=== PATIENT | male | born 1970 | race Caucasian/White ===

== ENCOUNTER 2018-11-07 05:30 | Observation (INO) ==
--- NOTE | 2018-11-03 14:46 | EKG Report ---
Test Performed on : 11/03/2018 2:31:05 PM Test Reason : pat Blood Pressure : / mmHG Vent. Rate : 101 BPM Atrial Rate : 101 BPM P-R Int : 156 ms QRS Dur : 090 ms QT Int : 354 ms P-R-T Axes : 067 069 -58 degrees QTc Int : 459 ms Sinus tachycardia. Biatrial enlargement ST & T wave abnormality, consider lateral ischemia Abnormal ECG No previous ECGs available Confirmed by Rakesh BASSETT, Hernan Otero ([id number]) on 11/03/2018 6:03:05 PM
[2018-11-03 15:18] LABS: HEMATOCRIT 42.8 % (42.0-52.0); HEMOGLOBIN 14.1 g/dL (14.0-18.0); MCH 27.6 PG (27-31); MCHC 32.9 g/dL (33-37); MCV 83.8 FL (81-99); MPV 10.3 FL (7.4-10.4); RBC 5.11 XMIL (4.7-6.1); RDW 14.2 % (11.5-14.5); WBC 8.77 X1000 (4.8-10.8)
[2018-11-03 15:25] LABS: AGAP 12; BUN 13 mg/dL (8-22); CHLORIDE 104 mmol/L (98-107); COSMO 292; CREATININE 1.1 mg/dL (0.7-1.2); ESTIMATED GFR > 60; GLUCOSE 151 mg/dL (70-104); POTASSIUM 3.3 mmol/L (3.5-5.1); SODIUM 145 mmol/L (136-145); TCO2 29 mmol/L (25-35); URIC ACID 8.1 mg/dL (3.4-7.0)
--- NOTE | 2018-11-06 16:29 | HISTORY AND PHYSICAL ---
CHIEF COMPLAINT: Left renal stone. HISTORY OF PRESENT ILLNESS: This 48-year-old male has a several month history of severe intermittent left flank pain. Evaluation revealed a 2 x 3 mm calcification in the left renal pelvis and a 1 cm calcification in a left mid lakshmi. The patient denies any previous history of kidney stones. He has had no previous urologic surgery. He has no problems with urinary tract infections or gross hematuria. He states when he was seen in the emergency room they told him he had blood in his urine. He is not taking any medications for his urinary system. PAST MEDICAL HISTORY: Hypertension, elevated cholesterol, diabetes, history of a seizure. CURRENT MEDICATIONS: Atenolol, lisinopril, atorvastatin, glimepiride, hydrochlorothiazide. PAST SURGICAL HISTORY: Leg fracture with pinning. SOCIAL HISTORY: No current tobacco or alcohol use. Previous recreational drug use of marijuana, cocaine and methamphetamine. He states this was several years ago. ALLERGIES: No known drug allergies. REVIEW OF SYSTEMS: Usually in good health. He denies any problems with chest pains, recent pulmonary or bowel problems. He has no current voiding problems. PHYSICAL EXAMINATION: GENERAL: A normally developed, age apparent, mildly obese, white male, oriented in all ways and cooperative. HEENT: Normal for age. LUNGS: Clear. CARDIOVASCULAR: Regular rate and rhythm. ABDOMEN: Protuberant, soft, nontender. No hepatosplenomegaly or masses. Normal bowel sounds. : Uncircumcised male. Foreskin retracts. Both testes are down and palpably normal. There are no inguinal hernias. RECTAL: Deferred until surgery. EXTREMITIES: No clubbing, cyanosis, or edema. NEUROLOGIC: No focal deficits. IMPRESSION: Large left renal pelvic stone with a smaller left mid kidney stone. PLAN: Laparoscopic robot-assisted left pyelolithotomy with removal of the large stone and hopefully removal of the left mid stone. The planned procedure, benefits versus risks, and possible complications, including but not limited to bleeding, infection, not being able to remove the stone, not being able to remove all stones, need for further stone surgery, formation of a ureteropelvic junction stricture or ureteral stricture was discussed. Discussed he will need to have a double-J stent in place for 4 weeks. He seems to understand and desires to proceed. cc: Matteo Jason MD
[2018-11-07] MEDS ORDERED: REGLAN ONE (06:11)
[2018-11-07] MEDS ORDERED: PEPCID ONE (06:11)
[2018-11-07] MEDS ORDERED: LR 1,000 ML ONE ×2 (06:11→06:34)
[2018-11-07] MEDS ORDERED: KEFZOL 1 GM/D5W 2 GM/100 ML IVPB ONE (06:11)
[2018-11-07] MEDS ORDERED: VERSED ONE (06:29)
[2018-11-07] MEDS ORDERED: FENTANYL ONE (06:29)
[2018-11-07] MEDS ORDERED: DIPRIVAN 1% ONE (06:30)
[2018-11-07] MEDS ORDERED: QUELICIN (DOSE) ONE (06:30)
[2018-11-07] MEDS ORDERED: XYLOCAINE-MPF 2% ONE (06:30)
[2018-11-07] MEDS ORDERED: ROBINUL ONE ×2 (06:30→07:10)
[2018-11-07] MEDS ORDERED: SENSORCAINE 0.25%/EPI 1:200,000 ONE (06:34)
[2018-11-07] MEDS ORDERED: NORCURON ONE (07:07)
[2018-11-07] MEDS ORDERED: STERILE WATER INJ. ONE (07:07)
[2018-11-07] MEDS ORDERED: EPHEDRINE ONE (07:08)
[2018-11-07] MEDS ORDERED: DECADRON ONE (07:10)
[2018-11-07] MEDS ORDERED: TORADOL ONE (07:10)
[2018-11-07] MEDS ORDERED: OFIRMEV 1000 MG/ISOTONIC SOLN 1,000 MG/100 ML BOTTLE ONE (07:10)
[2018-11-07] MEDS ORDERED: NEOSTIGMINE ONE (07:10)
[2018-11-07] MEDS ORDERED: ZOFRAN ONE (07:10)
[2018-11-07 08:20] LABS: BILIRUBIN URINE NEGATIVE (NEGATIVE); BLOOD URINE NEGATIVE (NEGATIVE); COLOR YELLOW; GLUCOSE URINE NEGATIVE (NEGATIVE); KETONE URINE NEGATIVE (NEGATIVE); LEUKOCYTES URINE SMALL (NEGATIVE); NITRITE URINE NEGATIVE (NEGATIVE); PROTEIN URINE NEGATIVE (NEGATIVE); SP GRAVITY URINE 1.018; TURBIDITY URINE CLEAR (CLEAR); URINE SOURCE CATH; UROBILINOGEN URINE NORMAL (NORMAL)
[2018-11-07 08:21] LABS: UR EPITHELIAL CELLS <10 /HPF (<10); URINE BACTERIA NEGATIVE /HPF; URINE RBC <10 /HPF (<10)
[2018-11-07] MEDS ORDERED: NS 1,000 ML ONE (13:02)
[2018-11-07] MEDS: KEFZOL 1 GM/D5W 1 GM/50 ML IVPB ONE ×2 (13:10→20:12)
[2018-11-07] MEDS: LR 500 ML ONE ×2 (13:15→21:18)
[2018-11-07] MEDS: DILAUDID ONE ×3 (13:27→21:20)
[2018-11-07] MEDS ORDERED: OFIRMEV 1000 MG/ISOTONIC SOLN 1,000 MG/100 ML BOTTLE IV PRN (13:30)
[2018-11-07] MEDS ORDERED: PHENERGAN IV PRN (14:00)
[2018-11-07] MEDS ORDERED: SODIUM CHLORIDE 0.9% INJ PRN (14:00)
[2018-11-07] MEDS ORDERED: DITROPAN PO PRN (14:00)
[2018-11-07] MEDS ORDERED: BENADRYL LIQUID PO PRN (14:00)
[2018-11-07] MEDS ORDERED: OXY IR PO PRN (14:00)
[2018-11-07] MEDS: MORPHINE IV PRN ×2 (15:54→21:31)
[2018-11-07] MEDS: NS 1,000 ML IV SCH (15:55)
[2018-11-07] MEDS ORDERED: KEFZOL 2 GM/D5W 2 GM/50 ML IVPB IV SCH (21:00)
--- NOTE | 2018-11-07 21:24 | OPERATIVE NOTE ---
PROCEDURE DATE: 11/07/2018 SURGEON: Matteo Jason MD. PREOPERATIVE DIAGNOSIS: Large left renal pelvic stone. POSTOPERATIVE DIAGNOSIS: Large left renal pelvic stone. PROCEDURE PERFORMED: Laparoscopic robot-assisted left pyelolithotomy. ANESTHESIA: General endotracheal. FINDINGS: An approximate 3 x 4 cm stone in the left renal pelvis. INDICATION FOR PROCEDURE: This 48-year-old male has a long history of left flank pain. It steadily got worse. Evaluation revealed a large left renal pelvic stone and a smaller stone in a left mid to lower pole calyx. The options for treating this including several shockwave lithotripsies, percutaneous nephrostolithotomy or laparoscopic robot-assisted pyelolithotomy was discussed. He decided on the laparoscopic robot assisted pyelolithotomy. DESCRIPTION OF PROCEDURE: After informed consent was obtained from the patient, him receiving IV antibiotics, he was taken to the main OR, placed in supine position. General endotracheal anesthesia was achieved. He was then placed with his left side up about 30 to 40 degrees. He was then affixed to the table. The table was somewhat flexed and placed in reverse Trendelenburg such that his thorax was parallel to the floor. The patient had a 16-Bruneian José catheter passed through the urethra, prostate and bladder without difficulty. He was then prepped and draped sterilely for left flank and abdominal surgery. The table was then rotated all the way to his left to bring him all most supine. The robot trocars were placed with the camera port approximately 1 handbreadth above the umbilicus just to the left of the midline. The water drop test was used to verify the Veress needle in good position in the abdomen. The abdomen was insufflated to 14 cm of water. The Veress needle was removed and the 12 mm port was placed which acted as the camera port. A camera was placed and the #2 robot arm was placed just at the midclavicular line just below the ribcage. The #1 arm was placed below the umbilicus in the midclavicular line. The 4th arm was placed just above the left anterior superior iliac spine. The public services assistant port was placed just below the umbilicus in the midline. After all trocars were placed, the patient was rotated all the way to the right such that his left side was rotated all the way up into the flank position. The robot was docked. The procedure was started by taking down the descending colon along the white line of Toldt. The colon was reflected completely medially. The 4th arm was then used to grab tissue at the lower pole and provide traction and this area was dissected until the gonadal vein was seen. The patient was obese and there was a large amount of adipose tissue internally. After the gonadal vein was visualized the dissection was continued down on to the area of the psoas muscle where the ureter was visualized. The gonadal vein was then dissected up to the renal vein. The renal vein came under the aorta close to the lower pole of the kidney. After the renal vein was visualized, attention was turned back to the ureter that was dissected up to the renal pelvis. The anterior portion of the renal pelvis was dissected and then the inferior portion was dissected. The pelvis was entered above the UPJ but the renal vein completely covered the renal pelvis. It had to be held cephalad the whole case. After the pelvis was entered, the stone was not visualized. There was a large amount of tissue present. A portion was removed and sent to Pathology for frozen section and it came back benign. The stone was found after all of the probable inflammatory tissue was removed and the stone was very large and difficult to manipulate in the surroundings but it was eventually able to be removed. After the stone was removed it was placed in an EndoCatch bag and moved out of the way. The area was irrigated. The ureter had been avulsed while removing the stone. A Sensor wire was passed through the ureter down into the bladder. The renal pelvis was finally located. It had retracted up behind the renal vein and kidney. The renal pelvis was closed starting at the superior end and running down with a 3-0 Vicryl and the pelvis was closed to about 12-Bruneian. A 7- Bruneian, 26 cm double-J stent was passed over the Sensor wire and down into the bladder. The double-J stent was pushed all the way down until the coil was seen. The wire was removed. The double-J stent was forced up into the renal pelvis and it coiled into the renal pelvis without difficulty. The 3-0 Vicryl was then used to close the UPJ area and ureter. The 4th arm was then removed and a 19-Bruneian Aguilar drain was brought through the 4th arm trocar. The trocar was removed and the Aguilar drain placed in the retroperitoneum and was sutured to the skin with 3-0 nylon. At completion, the renal pelvis appeared intact. The stent could not be seen. The double- J stent could be seen through the ureteral tissue. The robot was undocked. The patient was then rotated all the way to the left. The trocars were removed. The public services assistant trocar was the last 1 to be removed and it was pulled back over the Endo Catch bag retrieval string. The public services assistant port incision was extended for another 2 cm. The surgeon's finger was placed in the wound and the Bovie electrocautery was used to cut down to the abdominal rectus fascia which was opened further and the stone in the Endo Catch bag was removed. The abdominal rectus fascia was reapproximated with 2 interrupted sutures of #1 Maxon. The abdominal rectus fascia at the camera port incision was closed with a [id number] suture of 2-0 Vicryl on a UR6 needle. The skin incisions were reapproximated with clips and island dressings were placed. He tolerated the procedure well. Estimated blood loss was 100 mL. He was extubated and taken to the recovery room in good condition with the José catheter in place. cc: Matteo Jason MD [facility]
[2018-11-07] MEDS: PEPCID PO SCH (21:30)
[2018-11-07] MEDS: COLACE PO SCH (21:30)
[2018-11-07] MEDS: PERIDEX MT SCH (21:36)
[2018-11-08] MEDS: NS 1,000 ML IV SCH ×3 (00:39→13:26)
[2018-11-08] MEDS: MORPHINE IV PRN ×3 (02:47→15:59)
[2018-11-08] MEDS: OXY IR PO PRN ×4 (07:00→23:56)
[2018-11-08 07:35] LABS: HEMATOCRIT 41.6 % (42.0-52.0); HEMOGLOBIN 13.2 g/dL (14.0-18.0); MCH 27.5 PG (27-31); MCHC 31.7 g/dL (33-37); MCV 86.7 FL (81-99); RBC 4.8 XMIL (4.7-6.1); RDW 14.1 % (11.5-14.5); WBC 16.9 X1000 (4.8-10.8)
[2018-11-08 07:51] LABS: CALCIUM 7.6 mg/dL (8.8-10.2); CREATININE 2.8 mg/dL (0.7-1.2); POTASSIUM 3.5 mmol/L (3.5-5.1)
[2018-11-08 10:14] LABS: CREATININE BODY FLUID 2.4 mg/dL
[2018-11-08] MEDS: PEPCID PO SCH ×2 (10:48→20:19)
[2018-11-08] MEDS: PERIDEX MT SCH ×2 (10:48→20:19)
[2018-11-08] MEDS: COLACE PO SCH ×2 (10:49→20:19)
[2018-11-09] MEDS: MORPHINE IV PRN ×2 (02:45→23:42)
[2018-11-09] MEDS: LABETALOL IV PRN ×3 (04:12→11:12)
[2018-11-09] MEDS: NS 1,000 ML IV SCH ×4 (06:05→16:06)
[2018-11-09 06:29] LABS: BODY FLUID SOURCE JP DRAIN FLUID; CREATININE BODY FLUID 2.4 mg/dL
[2018-11-09 07:14] LABS: BASO# 0.01 X1000 (0.0-0.2); BASO% 0.1 % (0.0-0.8); EOS# 0.08 X1000 (0.0-0.7); EOS% 0.6 % (0.0-10.0); HEMATOCRIT 39.6 % (42.0-52.0); HEMOGLOBIN 12.9 g/dL (14.0-18.0); IMM GRAN# 0.03 X1000 (0.0-0.04); IMM GRAN% 0.2 % (0.0-0.5); LYMPH# 1.86 X1000 (1.2-3.4); LYMPH% 13.8 % (20.5-51.1); MCH 27.6 PG (27-31); MCHC 32.6 g/dL (33-37); MCV 84.6 FL (81-99); MONO# 1.43 X1000 (0.11-0.59); MONO% 10.6 % (1.7-9.3); MPV 11.2 FL (7.4-10.4); NEUT# 10.08 X1000 (1.4-6.5); NEUT% 74.7 % (42.2-75.2); PLT 214 X1000 (130-400); RBC 4.68 XMIL (4.7-6.1); RDW 14.1 % (11.5-14.5); WBC 13.49 X1000 (4.8-10.8)
[2018-11-09 07:36] LABS: CALCIUM 7.9 mg/dL (8.8-10.2); POTASSIUM 3.4 mmol/L (3.5-5.1)
[2018-11-09] MEDS: COLACE PO SCH ×2 (10:22→20:05)
[2018-11-09] MEDS: PERIDEX MT SCH ×2 (10:23→20:05)
[2018-11-09] MEDS: PEPCID PO SCH ×2 (10:23→20:05)
[2018-11-09] MEDS: OXY IR PO PRN ×2 (10:23→20:05)
[2018-11-09] MEDS ORDERED: GLUCOTROL XL PO SCH (11:30)
[2018-11-09] MEDS ORDERED: HYDROCHLOROTHIAZIDE PO SCH (11:30)
[2018-11-09] MEDS ORDERED: PRINIVIL PO SCH (11:30)
--- NOTE | 2018-11-09 12:40 | Diag Imaging Result Doc PS360 ---
EXAM: ABDOMEN FLAT/UPRIGHT HISTORY: pain TECHNIQUE: Flat and upright, three views COMPARISON: None. FINDINGS: Skin james overlie the mid abdomen and upper pelvis. There is a left ureteral stent with a left renal stone. No bowel obstruction. No organomegaly. Mild scoliosis. IMPRESSION: No acute abnormality. Electronically signed by Gwyn Cortés 11/09/2018 12:37 PM
[2018-11-09] MEDS: TENORMIN PO SCH (13:22)
[2018-11-09] MEDS ORDERED: ROCEPHIN 1 GM in NS 50 ML IV SCH (13:45)
[2018-11-09 14:22] LABS: INR 1.17
[2018-11-09 14:23] LABS: PTT 33.5 Seconds (22.3-41.8)
[2018-11-09 14:49] LABS: CK INDEX 0.3 (0.0-2.5); CK-MB 5.87 ng/mL (0.0-5.0)
--- NOTE | 2018-11-09 15:46 | CONSULTATION ---
DATE OF CONSULTATION: 11/09/2018 REASON FOR CONSULTATION: Medical management. High blood pressure. HISTORY OF PRESENT ILLNESS: Mr. Higuera is a 48-year-old male with a past medical history of hypertension, hyperlipidemia, diabetes mellitus, and seizure history, who reported to Dr. Jason with several month history of severe intermittent flank pain. Evaluation showed a 2 x 3 mm calcification in the left renal pelvis and a 1 cm calcification of the left mid calyx. 24,000. He was admitted on 11/06/2018 and underwent a laparoscopic robotic assisted left pyelolithotomy by Dr. Jason on 11/07/2018. The patient continued to be hypertensive throughout his stay. He was initiated back on his home medications this a.m., however at bedside reports at home, even with his blood pressure medicines, he tends to run in the 180s, sometimes a little higher over low 100s. Apparently he ruled in for the sepsis protocol. They have initiated the orders. We will start Rocephin for now. There was some concern over ileus, however his KUB shows no acute abnormality. I do believe there was a post void residual of over [address] Jason has ordered his José catheter to be reinserted, which the patient is somewhat apprehensive about at this time. On 11/09/2018 he had a white count of 16. On 11/09/2018 he had a white count of 13. He has had an elevation in his creatinine since admission at 1.1 up to 2.8 and now 2.0. His plasma lactate was 3.8. Currently, pending all other sepsis protocol labs. We will follow that up with a urinalysis as well as a chest x-ray. PAST MEDICAL HISTORY: 1. Hypertension. 2. Hyperlipidemia. 3. Diabetes. 4. Seizure. PAST SURGICAL HISTORY: Leg fracture with pinning. CURRENT MEDICATIONS: Atenolol, lisinopril,atorvastatin, glimepiride, hydrochlorothiazide. SOCIAL HISTORY: He is . No tobacco, alcohol, or illicit drug use. He is a previous recreational drug user of marijuana, cocaine, and methamphetamines, however this was several years ago. ALLERGIES: No known drug allergies. REVIEW OF SYSTEMS: Completely negative except for those mentioned in the HPI. PHYSICAL EXAMINATION: Vital signs: Temperature 98.3, heart rate 87, respirations 20, blood pressure 194/120, O2 saturation 98% on room air. General: Mr. Higuera is a 48-year-old male who is sitting up in the bed getting a bladder scan, in no acute distress. HEENT: Atraumatic. Normocephalic. PERRL. Neck: Supple. Trachea midline. Cardiovascular: S1, S2 appreciated. No murmurs, gallops, or rubs noted. Respiratory: Lung sounds are clear bilaterally. Gastrointestinal: Obese. Somewhat distended but bowel sounds are present. Lower extremities: Negative for edema. Neurological: No focal deficits noted. PERTINENT DIAGNOSTICS AND LABORATORY DATA: Per HPI. ASSESSMENT AND PLAN: 1. Hypertension. The patient has been reinitiated back on his home medications and has labetalol intravenously every two hours as needed. Per at bedside, his blood pressure at home, even with these medications, he tends to run 180s/100s. 2. Sepsis rule in. The patient did just have surgery. Could be reactive. He is afebrile. Currently awaiting blood cultures, urine culture, and chest x-ray. We will go ahead and initiate him on some Rocephin. Continue with intravenous fluids. Currently pending the rest of the sepsis protocol labs. Continue to trend his lactate, that was 3.5. 3. Acute kidney injury. Will continue with intravenous hydration. This will be followed by Dr. Jason. 4. Large left renal pelvic stone, status post laparoscopic robotic assisted left pyelolithotomy, performed by Dr. Jason. He is under the care of Dr. Jason. 5. Concern for ileus. However, his KUB shows no acute abnormality. 6. Concern for rhabdomyolysis. We are still awaiting those labs. Again, will continue with intravenous hydration. 7. Hyperlipidemia. 8. Diabetes. Will place him on sliding scale. Continue his home medications as well as adding on patterned blood sugars. 9. Further recommendations to follow physician evaluation and laboratory and diagnostic data. Dictated by MALU iDckey for Edmund Batista MD cc: Edmund Batista MD
[2018-11-09] MEDS ORDERED: DULCOLAX PR ONE (16:47)
[2018-11-09] MEDS: HUMALOG SUBQ SCH (17:20)
[2018-11-09 19:30] LABS: URINE SOURCE CLEAN CATCH
[2018-11-09 19:32] LABS: BILIRUBIN URINE NEGATIVE (NEGATIVE); BLOOD URINE LARGE (NEGATIVE); COLOR ORANGE; GLUCOSE URINE NEGATIVE (NEGATIVE); KETONE URINE NEGATIVE (NEGATIVE); LEUKOCYTES URINE MODERATE (NEGATIVE); NITRITE URINE NEGATIVE (NEGATIVE); PROTEIN URINE 50 mg/dL (NEGATIVE); SP GRAVITY URINE 1.014; TURBIDITY URINE HAZY (CLEAR); UROBILINOGEN URINE NORMAL (NORMAL)
[2018-11-09 19:33] LABS: UR EPITHELIAL CELLS <10 /HPF (<10); URINE BACTERIA NEGATIVE /HPF; URINE RBC TNTC /HPF (<10); URINE WBC 20-40 /HPF (<10)
[2018-11-09] MEDS: NORVASC PO SCH (20:09)
[2018-11-09] MEDS ORDERED: COREG PO SCH (21:00)
--- NOTE | 2018-11-10 01:03 | CONSULTATION ---
DATE OF CONSULTATION: 11/09/2018 ADDENDUM: I have seen and examined Mr. Higuera today. He feels to be doing well, better than early on today. Mr. Higuera is a 48-year-old gentleman who has been under the Urologic Service since 11/06/2018. He initially got admitted because of left renal stone. He underwent laparoscopic robot-assisted left pyelolithotomy with removal of a large left renal pelvic stone and deployment of a J-stent in the left ureter. Postoperatively he seems to have been doing well until this morning, he did complain of some abdominal pain and abdominal distention. We have been consulted because of possible ileus and rhabdomyolysis. Currently his vitals have been reviewed. PHYSICAL EXAMINATION: Abdomen: His abdomen is distended. There is new laparoscopic scars on the anterior abdominal wall. Bowel sounds are present but remarkably hypoactive. No tenderness. QM NURSE: The patient is awake, alert and oriented. LABORATORY DATA: I have also reviewed his lab work, this morning his WBC is down to 13.49. I think this is probably reactive. The other parameters on the CBC are unremarkable. Chemistry has also been reviewed. His creatinine is down to 2.00 from 2.8 yesterday. His plasma lactate has normalized. His CK is up to 1752. A KUB that was done this morning suggests that there is a left ureteral stent with the left renal stone, no bowel obstruction. I think there is some mild ileus and there is also some mild fecal material in the right colon. ASSESSMENT AND PLAN: 1. Abdominal discomfort with distention with KUB imaging suggestive of mild ileus. I think for now Mr. Higuera seems to be doing well. We will start him on clears. We will also put him on a bowel regimen to help with his bowel movement. 2. History of a large left renal pelvic stone status post robotic-assisted left hilar pyelolithotomy. Urology is on board. 3. Leukocytosis. We think this is reactive; however, an underlying infection cannot be completely ruled out. The patient has been empirically started on IV antibiotics and we will be waiting on the blood cultur 4. Nonoliguric acute kidney injury. Creatinine seems to be trending down. I have discontinued his TANESHA inhibitor and the diuretics just because of the renal abnormalities. We will use amlodipine and a beta dorothy. I will also add hydralazine for a better blood pressure control. 5. Hypertension. Please refer to the plan above. 6. Mild rhabdomyolysis. We will continue with IV fluids. Please refer to the details of the consultation note which has been dictated by the nurse practitioner in the chart. cc: Edmund Batista MD
[2018-11-10] MEDS: HUMALOG SUBQ SCH ×2 (04:10→12:48)
[2018-11-10 07:02] LABS: HEMATOCRIT 39.2 % (42.0-52.0); HEMOGLOBIN 12.6 g/dL (14.0-18.0); MCH 27.5 PG (27-31); MCHC 32.1 g/dL (33-37); MCV 85.4 FL (81-99); MPV 10.6 FL (7.4-10.4); RBC 4.59 XMIL (4.7-6.1); RDW 14.2 % (11.5-14.5); WBC 10.94 X1000 (4.8-10.8)
[2018-11-10 07:06] LABS: HEMOGLOBIN A1C 6.6 % (4.8-6.0)
--- NOTE | 2018-11-10 07:06 | Diag Imaging Result Doc PS360 ---
EXAM: CHEST-PORTABLE 11/10/2018 HISTORY: hypoxia TECHNIQUE: AP portable at 0549 COMMENT: The inspiration is suboptimal. There are no focal pulmonary opacities. The heart size is at the upper limits. IMPRESSION: Borderline cardiomegaly. Electronically signed by Faizan Valencia 11/10/2018 7:04 AM
[2018-11-10 07:27] LABS: CALCIUM 8.1 mg/dL (8.8-10.2); CREATININE 1.3 mg/dL (0.7-1.2); POTASSIUM 2.8 mmol/L (3.5-5.1)
[2018-11-10] MEDS: OXY IR PO PRN (08:10)
[2018-11-10] MEDS ORDERED: MAGNESIUM SULFATE 2 GM/S.W.I. 2 GM/50 ML IVPB IV ONE (08:36)
[2018-11-10] MEDS: NORVASC PO SCH (09:18)
[2018-11-10] MEDS: PERIDEX MT SCH (09:18)
[2018-11-10] MEDS: PEPCID PO SCH (09:19)
[2018-11-10] MEDS: TENORMIN PO SCH (09:19)
[2018-11-10] MEDS: COLACE PO SCH (09:19)
[2018-11-10] MEDS: NS 1,000 ML IV SCH (09:20)
[2018-11-10] MEDS: MORPHINE IV PRN (11:10)
[2018-11-10] MEDS: POTASSIUM CHLORIDE 20 MEQ/SWI 20 MEQ/100 ML IVPB IV SCH ×2 (11:11→14:03)
[2018-11-10 11:40] VITALS: BP 164/94
--- NOTE | 2018-11-10 14:47 | PROGRESS NOTE ---
DATE: 11/10/2018 SUBJECTIVE: Today, Mr. Higuera refers to be doing well. He said he had 2 bowel movements, 1 yesterday and 1 this morning, and since then he feels a lot better. Abdomen is not bloated, and he denies any pain. OBJECTIVE: Vital Signs: Blood pressure is 164/94, pulse of 65, respirations 18, temperature 98.7 degrees, the patient was saturating 98% on nasal cannula. General: Mr. Higuera is a 48-year-old gentleman. He was in bed. No distress. Mucosa is pink and moist. Anicteric. Acyanotic. Neck: Supple. Chest: Clear to auscultation. No crepitations. No rhonchi. Cardiovascular: Regular rate and rhythm. There were no murmurs, no rubs, no gallops. GI: Abdomen was soft, distended, but nontender. There are some new laparoscopic scars on the anterior abdominal wall. Extremities: No pedal edema. HEEL SEAT FLAP STAPLER: The patient was awake, alert, and oriented. There was no focal neurological deficit. LABORATORY DATA: WBC is down to 10.94, hemoglobin is 12.6, platelet count of 185,000. Chemistry is also reviewed. Potassium was 2.8. This has been replaced. Creatinine is down to 1.3 from 2.0 yesterday. The patient's A1c is 6.5, and creatine kinase is down to 1512. ASSESSMENT: 1. Ileus associated with constipation. This has significantly improved overnight. 2. History of large left renal pelvic stone, status post robotic-assisted left pyelolithotomy. 3. Reactive leukocytosis. 4. Nonoliguric acute kidney injury. Creatinine continues to be trending down. We have discontinued the patient's blood pressure medication with potential to affect the kidneys, including the lisinopril and hydrochlorothiazide. 5. Uncontrolled hypertension. The patient has been started on amlodipine. Atenolol has been restarted from his home list, and we have also added hydralazine. Would prefer to stay away from the angiotensin-converting enzyme inhibitor and the diuretic because of the acute kidney injury. 6. Mild rhabdomyolysis. CK is trending down. The patient has been advised to orally hydrate himself well. 7. Obesity with body mass index of 34.9. 8. Diabetes mellitus with A1c of 6.6. The patient uses glipizide at home. We have advised that he continue that at home. In general, I think Mr. Higuera is doing a whole lot better today. He has been able to move his bowels, and since then he feels a lot better. From a medical standpoint, we think he should be okay to be discharged once it is fine with the primary care team (the Urology Team). As I said, we have made some changes to his antihypertensive medications because of the acute kidney injury. The patient will review the medication list with his primary care doctor once he gets discharged. cc: Edmund Batista MD
== END 2018-11-10 15:32 | disposition home or self-care (01) ==
LOC: OR 05:30 → 4N 05:30
PROVIDERS: ADMIT Internal Medicine; ATTEND Urology